=== PATIENT | female | born 1945 | race Caucasian/White ===

== ENCOUNTER → 2016-08-22 | Outpatient (CLI) | payer OTHER, BC ==
[~2016-08-22] MED LIST: ADULT LOW DOSE81 MG PO; BENADRYL25 MG PO; BIOTIN2500 MCG PO; CELEBREX 200 M200 M1 PO; DOCUSATE SODIU100 MG PO; DUONEB 2.5-0.5 M3 ML INH; EQL CRANBERRY1 EACH PO; FLEXERIL PO; HYDROCODON-ACE1 EAC7 PO; HYDROCODON-ACE1 EACH PO; LEVOTHYROXINE0.2 M1 PO; MULTIVITAMINS PO; ONDANSETRON HCL4 M2 PO; OXYCONTIN20 M1 PO; OXYCONTIN80 M1 PO; PERCOCET 5-3251 EACH PO; PREMARIN0.625 MG PO; QVAR8.7 G1 IH; SYNTHROID175 MCG PO; TRAMADOL 50 MG50 MG PO; VENTOLIN HFA INH8 GM IH; VITAMIN D32000 UNI1 PO; VITAMIN D3400 UNI2 PO; XANAX 0.5 MG0.5 M1 PO; ZANTAC 150MG T150 M1 PO
== END ==
LOC: RAD 15:10
DX: Z12.31 Encounter for screening mammogram for malignant neoplasm of breast (principal)

== ENCOUNTER → 2017-10-29 | Outpatient (CLI) | payer OTHER, BC | LOC: RAD 15:52 | DX: R07.9 Chest pain, unspecified (principal) ==

== ENCOUNTER → 2018-06-10 | Outpatient (CLI) | payer OTHER, BC | LOC: RAD 15:14 | DX: Z12.31 Encounter for screening mammogram for malignant neoplasm of breast (principal) ==

== ENCOUNTER → 2018-07-26 | Outpatient (CLI) | payer OTHER, BC | LOC: ULTRA 14:16 | DX: N28.1 Cyst of kidney, acquired (principal); R60.9 Edema, unspecified ==